=== PATIENT | male | born 1940 | race Caucasian/White ===

== ENCOUNTER → 2018-11-28 | Outpatient (CLI) | payer MEDICARE, OTHER ==
[~2018-11-28] MED LIST: ATOR20 PO; CELE200 PO; DONE10 PO; LISI20 PO; METO25 PO; Omeprazole20 M1 PO; TAMS.4ER PO
[2018-11-28 19:16] LABS: Appearance, Urine Cloudy (Clear); Bilirubin, Urine Neg (Neg); Blood, Urine 5+ (Neg); Color, Urine Yellow (P-Yellow); Glucose Qualitative, Urine Neg (Neg); Ketones, Urine Neg (Neg); Leukocyte Esterase, Urine 3+ (Neg); Nitrite, Urine Neg (Neg); Protein, Urine 3+ (Neg); Urobilinogen, Urine NORM (Normal)
[2018-11-28 19:41] LABS: White Blood Cells, Urine TNTC /hpf (0-5)
[2018-11-28 19:42] LABS: Bacteria Many /hpf; Squamous Epithelial Cells Few /hpf (Few)
== END | disposition home or self-care (01) ==
LOC: LAB 18:47 → LAB SHORT 18:47
PROVIDERS: Family Medicine
DX: R30.9 Painful micturition, unspecified (principal)
CPT/HCPCS: 81001; 87086

== ENCOUNTER 2018-12-17 10:58 | Emergency (ER) | payer MEDICARE, OTHER ==
[~2018-12-17] VITALS: Ht 162.6 cm; Wt 84.8 kg
[2018-12-17 11:39] LABS: BASOPHILS ABSOLUTE AUTO 0.04 K/mm3 (0.00-0.23); BASOPHILS PERCENT AUTO 1 % (0-2); EOSINOPHILS ABSOLUTE AUTO 0.24 K/mm3 (0.00-0.68); EOSINOPHILS PERCENT AUTO 4 % (0-6); Hematocrit 41.3 % (37.0-53.0); Hemoglobin 13.8 g/dL (13.5-17.5); IMMATURE GRAN ABSOLUTE AUTO 0.01 K/mm3 (0.00-0.10); IMMATURE GRAN PERCENT AUTO 0 % (0-1); LYMPHOCYTES ABSOLUTE AUTO 1.07 K/mm3 (0.84-5.20); LYMPHOCYTES PERCENT AUTO 15 % (21-46); MONOCYTES ABSOLUTE AUTO 0.54 K/mm3 (0.16-1.47); MONOCYTES PERCENT AUTO 8 % (4-13); Mean Corpuscular HGB Conc 33.4 g/dL (31.5-36.5); Mean Corpuscular Volume 93 fL (80-100); Mean Platelet Volume 9.8 fL (9.1-12.4); NEUTROPHILS ABSOLUTE AUTO 5.05 K/mm3 (1.96-9.15); NEUTROPHILS PERCENT AUTO 73 % (41-73); Platelet Count 261 K/mm3 (150-400); RDW Coefficient Variation 13.6 % (11.7-14.2); RDW Standard Deviation 46.3 fL (35.1-46.3); Red Blood Cell Count 4.45 M/mm3 (4.30-5.90); White Blood Cell Count 6.95 K/mm3 (4.00-11.30)
[2018-12-17 12:00] LABS: Alanine Aminotransfer (ALT/SGP 19 U/L (12-78); Albumin, Blood 3.6 g/dL (3.4-5.0); Albumin/Globulin Ratio 1.2 (0.8-1.8); Alk Phos 48 U/L (50-136); Anion Gap 8 mmol/L (6-16); Aspartate Aminotrans (AST/SGOT 16 U/L (12-37); Bilirubin, Total 0.4 mg/dL (0.1-1.0); Blood Urea Nitrogen 14 mg/dL (8-24); Bun/Creatinine Ratio 11.4 (12.0-20.0); CO2, Blood 26 mmol/L (21-32); Calcium, Blood 8.5 mg/dL (8.5-10.1); Chloride, Blood 109 mmol/L (98-108); Creatinine, Blood 1.23 mg/dL (0.60-1.20); Globulin, Blood 3.1 g/dL (2.2-4.0); Glomerular Filtration Rate >60 (60-); Glucose, Blood 125 mg/dL (70-99); Potassium, Blood 4.3 mmol/L (3.5-5.5); Sodium, Blood 143 mmol/L (136-145); Total Protein, Blood 6.7 g/dL (6.4-8.2)
--- NOTE | 2018-12-17 15:17 | NUR ---
Initial Visit: Palliative Care Consult for Goals of Care. Pt is A&Ox1. Pt unable to give appropriate place, reason for visit, and current year. Pt appears anxious as evidenced by tossing and turn in gurny and pulling at his IV. PAINAD score is 2/10. Pt has dried blood on his face from falling prior to ED visit. Pt's Anthony is present during visit. Dhara has completed a POLST form for Pt and has been signed by Dr Boyd. Due to some minor mistakes of Dhara signing in incorrect place this RN assisted with competing a new POLST. Educated Dhara on POLST form including life sustaining measures and risk factors. POLST form completed with wishes of DNR and comfort measures only. Engaged in therapeutic discussion of Pt's disease process and goals of care. Dhara reports Pt has Lewy Body Dementia and has shown significant decline of the last 6 months. Pt experiences incontinence of bowel and bladder. He requires assistance with bathing, dressing, and ambulation. Pt has a shuffling gate and struggles with using the walker without assistance. Pt has visited the ED twice in the last 6 months and has a history of multiple falls sometimes daily. Dhara reports Pt weighed 195 pounds 1 month ago and now weighs 187 pounds. Pt experiences occasional hallucinations and forgets how to eat. Dhara reports Pt experiences occaisonal difficulty swallowing and states he will cough sometimes when swallowing. Pt has had 2 UTI's in the last 2 months. Discussed the option of hospice. Dhara reports interest and this RN educated on hospice philosophy. Dhara is agreeable for hospice services. FAST 7C PPS 50% [place] 40% ADLs 5/[address] Boyd and he is agreeable with Pt going home with hospice. Spoke with Pt's bedside nurse Aryan and he is agreeable with plan. Called and spoke with hospice liason Rachael and she reports she will visit with Pt and family. Pt appears appropriate for hospice and family is agreeable. Palliative Care will remain available.
== END 2018-12-17 14:00 | disposition home or self-care (01) ==
LOC: ER 10:58
PROVIDERS: Emergency Medicine
DX: S06.0X9A Concussion with loss of consciousness of unspecified duration, initial encounter (principal); G40.909 Epilepsy, unspecified, not intractable, without status epilepticus; S01.21XA Laceration without foreign body of nose, initial encounter; Z51.5 Encounter for palliative care; W18.30XA Fall on same level, unspecified, initial encounter; Z79.899 Other long term (current) drug therapy; E11.22 Type 2 diabetes mellitus with diabetic chronic kidney disease; I12.9 Hypertensive chronic kidney disease with stage 1 through stage 4 chronic kidney disease, or unspecified chronic kidney disease; N18.3 Chronic kidney disease, stage 3 (moderate); E78.5 Hyperlipidemia, unspecified; F03.90 Unspecified dementia, unspecified severity, without behavioral disturbance, psychotic disturbance, mood disturbance, and anxiety
CPT/HCPCS: 70450; 71045; 72125; 80053; 85025; 93005; 93010; 96374; 99285-25; J2405